=== PATIENT | male | born 1935 | race Caucasian/White ===

== ENCOUNTER → 2016-05-23 | Outpatient (CLI) | payer OTHER ==
[2016-05-23 12:21] LABS: PROTHROMBIN TIME 22.1 SECONDS (9.0-12.4)
== END | disposition home or self-care (01) ==
LOC: LAB 11:16
PROVIDERS: Internal Medicine
DX: I48.91 Unspecified atrial fibrillation (principal)

== ENCOUNTER → 2016-08-22 | Outpatient (CLI) | payer OTHER ==
[2016-08-22 08:56] LABS: INTERNATIONAL NORM RATIO 3.3 (2.0-3.5); PROTHROMBIN TIME 37.9 SECONDS (9.0-12.4)
== END | disposition home or self-care (01) ==
LOC: LAB 08:14
PROVIDERS: Internal Medicine
DX: I48.91 Unspecified atrial fibrillation (principal)

== ENCOUNTER → 2016-09-22 | Outpatient (CLI) | payer OTHER ==
[2016-09-22 08:37] LABS: BASO # 0.1 10*3/uL (0.0-0.1); BASO % 1.1 % (0.0-1.0); EOS # 0.1 10*3/uL (0.0-0.4); EOS % 1.5 % (1.0-4.0); HEMOGLOBIN 11.3 g/dl (14.0-18.0); LYMPH # 1.8 10*3/uL (1.3-4.4); LYMPH % 23.2 % (27.0-41.0); MEAN CELL VOLUME 98.9 fl (80.0-94.0); MEAN CORPUSCULAR HGB 31.9 pg (27.0-31.0); MEAN CORPUSCULAR HGB CONC 32.3 g/dl (33.0-37.0); MEAN PLATELET VOLUME 10.9 fl (9.6-12.3); MONO # 0.8 10*3/uL (0.1-1.0); MONO % 10.6 % (3.0-9.0); NEUT # 4.8 10*3/uL (2.3-7.9); NEUT % 63.1 % (47.0-73.0); PLATELET COUNT AUTOMATED 416 10*3/uL (130-400); RED BLOOD COUNT 3.54 10*6/uL (4.50-5.90); RED CELL DISTRI WIDTH 13.9 % (0-14.5); WHITE BLOOD COUNT 7.5 10*3/uL (4.8-10.8)
[2016-09-22 09:00] LABS: INTERNATIONAL NORM RATIO 2.3 (2.0-3.5); PROTHROMBIN TIME 25.2 SECONDS (9.0-12.4)
[2016-09-22 09:06] LABS: ALBUMIN 3.5 gm/dl (3.1-4.5); BILIRUBIN, TOTAL 0.4 mg/dl (0.2-1.0); POTASSIUM 4.9 mmol/L (3.5-5.1)
[2016-09-22 09:08] LABS: HEMOGLOBIN A1c 6.9 % (4.8-5.6); TOTAL PROTEIN 7.9 gm/dL (6.4-8.2)
== END | disposition home or self-care (01) ==
LOC: LAB 07:22
PROVIDERS: Internal Medicine
DX: E78.5 Hyperlipidemia, unspecified (principal); E11.9 Type 2 diabetes mellitus without complications; I48.91 Unspecified atrial fibrillation; D68.9 Coagulation defect, unspecified; R53.83 Other fatigue

== ENCOUNTER → 2016-12-26 | Outpatient (CLI) | payer OTHER ==
[2016-12-26 09:37] LABS: ALBUMIN 3.8 gm/dl (3.1-4.5); ALKALINE PHOSPHATASE 102 U/L (45-117); BUN 22 mg/dl (7-24); CHLORIDE 102 mmol/L (98-107); CHOLESTEROL 150 mg/dL (<200); CREATININE 1.35 mg/dL (0.70-1.30); HDL CHOLESTEROL 39 mg/dl (40-60); LDL CHOLESTEROL 79 mg/dL (9-159); POTASSIUM 4.5 mmol/L (3.5-5.1); SGOT/AST 17 IU/L (3-35); SGPT/ALT 18 U/L (12-78); SODIUM 139 mmol/L (136-145); TOTAL PROTEIN 8.2 gm/dL (6.4-8.2); TRIGLYCERIDES 159 mg/dl (<150); VLDL CHOLESTEROL 32 mg/dL (6-40)
== END | disposition home or self-care (01) ==
LOC: LAB 08:44
PROVIDERS: Internal Medicine
DX: E11.9 Type 2 diabetes mellitus without complications (principal)

== ENCOUNTER → 2017-01-03 | Outpatient (CLI) | payer OTHER ==
[2017-01-03 15:04] LABS: BASO # 0.1 10*3/uL (0.0-0.1); BASO % 0.7 % (0.0-1.0); EOS # 0.1 10*3/uL (0.0-0.4); EOS % 1.3 % (1.0-4.0); HEMATOCRIT 37.7 % (42.0-52.0); HEMOGLOBIN 12.1 g/dl (14.0-18.0); LYMPH # 2.3 10*3/uL (1.3-4.4); LYMPH % 26.9 % (27.0-41.0); MEAN CELL VOLUME 95.7 fl (80.0-94.0); MEAN CORPUSCULAR HGB 30.7 pg (27.0-31.0); MEAN CORPUSCULAR HGB CONC 32.1 g/dl (33.0-37.0); MEAN PLATELET VOLUME 11.6 fl (9.6-12.3); MONO # 0.9 10*3/uL (0.1-1.0); MONO % 10.9 % (3.0-9.0); NEUT # 5.2 10*3/uL (2.3-7.9); PLATELET COUNT AUTOMATED 201 10*3/uL (130-400); RED BLOOD COUNT 3.94 10*6/uL (4.50-5.90); RED CELL DISTRI WIDTH 14.5 % (0-14.5); RETICULOCYTE % 1.71 % (0.50-2.50); WHITE BLOOD COUNT 8.6 10*3/uL (4.8-10.8)
[2017-01-03 15:14] LABS: URINE CREATININE RANDOM 61.4 mg/dL
[2017-01-03 15:35] LABS: ALBUMIN 3.9 gm/dl (3.1-4.5); CREATININE 1.39 mg/dL (0.70-1.30); MAGNESIUM 2.4 mg/dL (1.5-2.1); PHOSPHOROUS 3.4 mg/dL (2.5-4.9); POTASSIUM 4.4 mmol/L (3.5-5.1)
[2017-01-03 16:10] LABS: FERRITIN 34.5 ng/mL (22.0-322.0); PTH INTACT 91.2 pg/mL (14.0-72.0); VITAMIN D, 25-HYDROXY 22.4 ng/mL (30-100)
== END | disposition home or self-care (01) ==
LOC: LAB 14:06
PROVIDERS: Internal Medicine Nephrology
DX: I13.10 Hypertensive heart and chronic kidney disease without heart failure, with stage 1 through stage 4 chronic kidney disease, or unspecified chronic kidney disease (principal); N18.4 Chronic kidney disease, stage 4 (severe); E87.6 Hypokalemia; E78.5 Hyperlipidemia, unspecified; Z95.0 Presence of cardiac pacemaker

== ENCOUNTER → 2017-01-05 | Outpatient (CLI) | payer OTHER | END | disposition home or self-care (01) | LOC: RAD 11:24 | DX: M19.012 Primary osteoarthritis, left shoulder (principal); M85.812 Other specified disorders of bone density and structure, left shoulder ==

== ENCOUNTER → 2017-02-28 | Outpatient (CLI) | payer OTHER ==
[2017-02-28 08:59] LABS: BILIRUBIN NEGATIVE (NEGATIVE); BLOOD NEGATIVE (NEGATIVE); CLARITY CLEAR (CLEAR); COLOR YELLOW (YELLOW); GLUCOSE NEGATIVE (NEGATIVE); KETONE NEGATIVE (NEGATIVE); LEUKO ESTERASE NEGATIVE (NEGATIVE); NITRITE NEGATIVE (NEGATIVE); SPECIFIC GRAVITY <= 1.005 (1.005-1.030); UROBILINOGEN 0.2 E.U./dl (0.2-1.0)
[2017-02-28 09:21] LABS: CREATININE 1.41 mg/dL (0.70-1.30); POTASSIUM 4.4 mmol/L (3.5-5.1); TOTAL PROTEIN 8.1 gm/dL (6.4-8.2)
[2017-02-28 09:57] LABS: INTERNATIONAL NORM RATIO 2.6 (2.0-3.5)
[2017-02-28 11:02] LABS: RBC 0-2 rbc/hpf (0-2)
== END | disposition home or self-care (01) ==
LOC: LAB 07:50
PROVIDERS: Internal Medicine
DX: D68.9 Coagulation defect, unspecified (principal); E11.65 Type 2 diabetes mellitus with hyperglycemia; Z79.899 Other long term (current) drug therapy

== ENCOUNTER → 2017-07-27 | Outpatient (CLI) | payer OTHER ==
[2017-07-27 08:53] LABS: BASO # 0.1 10*3/uL (0.0-0.1); BASO % 0.7 % (0.0-1.0); EOS # 0.2 10*3/uL (0.0-0.4); HEMOGLOBIN 12.6 g/dl (14.0-18.0); LYMPH # 1.4 10*3/uL (1.3-4.4); MEAN CELL VOLUME 97.9 fl (80.0-94.0); MEAN CORPUSCULAR HGB 33.3 pg (27.0-31.0); MEAN CORPUSCULAR HGB CONC 34.1 g/dl (33.0-37.0); MEAN PLATELET VOLUME 11.2 fl (9.6-12.3); MONO % 13.2 % (3.0-9.0); NEUT % 65.8 % (47.0-73.0); PLATELET COUNT AUTOMATED 166 10*3/uL (130-400); RED BLOOD COUNT 3.78 10*6/uL (4.50-5.90); RED CELL DISTRI WIDTH 14.1 % (0-14.5); RETICULOCYTE % 1.61 % (0.50-2.50); WHITE BLOOD COUNT 7.6 10*3/uL (4.8-10.8)
[2017-07-27 09:01] LABS: URINE CREATININE RANDOM 89.7 mg/dL
[2017-07-27 09:13] LABS: ALBUMIN 3.7 gm/dl (3.1-4.5); CREATININE 1.53 mg/dL (0.70-1.30); POTASSIUM 4.1 mmol/L (3.5-5.1); TOTAL PROTEIN 7.4 gm/dL (6.4-8.2)
[2017-07-27 09:36] LABS: FERRITIN 96.9 ng/mL (22.0-322.0); VITAMIN D, 25-HYDROXY 62.1 ng/mL (30-100)
[2017-07-27 09:37] LABS: PTH INTACT 56.2 pg/mL (14.0-72.0)
== END | disposition home or self-care (01) ==
LOC: LAB 08:06
PROVIDERS: Internal Medicine Nephrology
DX: I13.10 Hypertensive heart and chronic kidney disease without heart failure, with stage 1 through stage 4 chronic kidney disease, or unspecified chronic kidney disease (principal); N18.4 Chronic kidney disease, stage 4 (severe); I50.9 Heart failure, unspecified; E55.9 Vitamin D deficiency, unspecified; E87.6 Hypokalemia; E78.5 Hyperlipidemia, unspecified; D63.1 Anemia in chronic kidney disease; Z95.0 Presence of cardiac pacemaker

== ENCOUNTER → 2017-11-23 | Outpatient (CLI) | payer OTHER ==
[2017-11-23 08:42] LABS: BASO # 0.1 10*3/uL (0.0-0.1); BASO % 0.9 % (0.0-1.0); EOS # 0.1 10*3/uL (0.0-0.4); EOS % 1.9 % (1.0-4.0); HEMATOCRIT 37.1 % (42.0-52.0); HEMOGLOBIN 12.2 g/dl (14.0-18.0); LYMPH # 1.4 10*3/uL (1.3-4.4); LYMPH % 21.1 % (27.0-41.0); MEAN CELL VOLUME 101.1 fl (80.0-94.0); MEAN CORPUSCULAR HGB 33.2 pg (27.0-31.0); MEAN CORPUSCULAR HGB CONC 32.9 g/dl (33.0-37.0); MEAN PLATELET VOLUME 12.2 fl (9.6-12.3); MONO # 0.9 10*3/uL (0.1-1.0); MONO % 12.7 % (3.0-9.0); NEUT # 4.2 10*3/uL (2.3-7.9); NEUT % 63.1 % (47.0-73.0); PLATELET COUNT AUTOMATED 146 10*3/uL (130-400); RED BLOOD COUNT 3.67 10*6/uL (4.50-5.90); RED CELL DISTRI WIDTH 13.6 % (0-14.5); WHITE BLOOD COUNT 6.7 10*3/uL (4.8-10.8)
[2017-11-23 09:41] LABS: ALBUMIN 4.1 gm/dl (3.1-4.5); CREATININE 1.55 mg/dL (0.70-1.30); TOTAL PROTEIN 7.4 gm/dL (6.4-8.2)
== END | disposition home or self-care (01) ==
LOC: LAB 08:02
PROVIDERS: Family Medicine
DX: E11.65 Type 2 diabetes mellitus with hyperglycemia (principal); E78.5 Hyperlipidemia, unspecified; I48.2 Chronic atrial fibrillation; E87.6 Hypokalemia

== ENCOUNTER 2018-05-28 12:28 | Inpatient (IN) | payer OTHER ==
[~2018-05-28] VITALS: Ht 167.6 cm; Wt 56.9 kg
[2018-05-28] VITALS (7 sets, daily range): BP systolic 122–134; BP diastolic 61–96
--- NOTE | ~2018-05-28 | EKG ---
[place], [place] ELECTROCARDIOGRAM REPORT NAME: SALLY VEGA UNIT #: [id number] ROOM: 420 DOCTOR: JOE DRAFT REPORT BIRTHDATE: [birth year] [facility] Test Date: 2018-05-28 Test Time: 12:45:44 Pat Name: SALLY VEGA Department: Room: 420 Gender: M Safety Net Maker: : [id number] Requested By: FERNANDO PEOPLES Order Number: [id number] Reading MD: Tomas Freeman MD Measurements Intervals [place] Rate: 78 P: 89 OR: 157 QRS: 246 QRSD: 156 T: 78 QT: 453 QTc: 517 Interpretive Statements Ventricular-paced complexes Frequent PVCs or intrinsic beats No further analysis attempted due to paced rhythm Electronically Signed On 05-28-2018 21:43:24 PST by Tomas Freeman MD CM:EKGRPT:ELECTROCARDIOGRAM REPORT [id number] FERNANDO DIAZ DRAFT REPORT FERNANDO PEOPLES MD
[2018-05-28 13:07] LABS: BASO % 0.3 % (0.0-1.0); EOS # 0.1 10*3/uL (0.0-0.4); EOS % 0.6 % (1.0-4.0); HEMATOCRIT 39.9 % (42.0-52.0); HEMOGLOBIN 12.6 g/dl (14.0-18.0); LYMPH # 1.3 10*3/uL (1.3-4.4); LYMPH % 14.8 % (27.0-41.0); MEAN CELL VOLUME 105.6 fl (80.0-94.0); MEAN CORPUSCULAR HGB 33.3 pg (27.0-31.0); MEAN CORPUSCULAR HGB CONC 31.6 g/dl (33.0-37.0); MEAN PLATELET VOLUME 11.2 fl (9.6-12.3); MONO # 1.1 10*3/uL (0.1-1.0); MONO % 12.6 % (3.0-9.0); NEUT # 6.2 10*3/uL (2.3-7.9); NEUT % 71.4 % (47.0-73.0); PLATELET COUNT AUTOMATED 136 10*3/uL (130-400); RED BLOOD COUNT 3.78 10*6/uL (4.50-5.90); RED CELL DISTRI WIDTH 14.2 % (0-14.5); WHITE BLOOD COUNT 8.6 10*3/uL (4.8-10.8)
[2018-05-28 13:19] LABS: ACT PARTIAL THROMBO TIME 37.1 SECONDS (20.8-31.5); INTERNATIONAL NORM RATIO 2.2 (2.0-3.5)
--- NOTE | 2018-05-28 13:22 | NUR ---
PT POSITIONED FOR COMFORT WITH SAFETY PRECAUTIONS INTACT AND CALL LIGHT WITHIN REACH,FAMILY FRIEND @ BEDSIDE.
[2018-05-28 13:24] LABS: ALBUMIN 3.9 gm/dl (3.1-4.5); BUN 27 mg/dl (7-24); CHLORIDE 102 mmol/L (98-107); CREATININE 1.45 mg/dL (0.70-1.30); POTASSIUM 5.1 mmol/L (3.5-5.1); SGOT/AST 15 IU/L (3-35); SGPT/ALT 21 U/L (12-78); SODIUM 137 mmol/L (136-145)
[2018-05-28 13:28] LABS: ALKALINE PHOSPHATASE 83 U/L (45-117); TOTAL PROTEIN 7.9 gm/dL (6.4-8.2)
[2018-05-28 13:29] LABS: TROPONIN I < 0.015 ng/ml (<0.045)
[2018-05-28] MEDS ORDERED: POTASSIUM CHLO10 ME4 PO (14:10)
[2018-05-28] MEDS ORDERED: TORSEMIDE20 MG PO (14:11)
[2018-05-28] MEDS ORDERED: IMDUR SA60 M1 PO (14:11)
[2018-05-28] MEDS ORDERED: METFORMIN HYDR500 MG PO (14:12)
[2018-05-28] MEDS ORDERED: Coumadin2 MG PO (14:12)
[2018-05-28] MEDS ORDERED: DIGITEK125 MCG PO (14:13)
[2018-05-28] MEDS ORDERED: FEROSUL325 MG PO (14:13)
[2018-05-28] MEDS ORDERED: VITAMIN D31000 UNI1 PO (14:54)
[2018-05-28] MEDS ORDERED: CARVEDILOL25 MG PO (14:55)
[2018-05-28] MEDS ORDERED: SIMVASTATIN10 MG PO (14:56)
[2018-05-28] MEDS ORDERED: JANTOVEN4 M1 PO (14:58)
--- NOTE | 2018-05-28 15:56 | NUR ---
PT WATCHING T.V. AN AWAITING ADMISSION,FAMILY AWARE.
[2018-05-28 16:18] LABS: BILIRUBIN NEGATIVE (NEGATIVE); BLOOD TRACE-INTACT (NEGATIVE); CLARITY CLOUDY (CLEAR); COLOR YELLOW (YELLOW); GLUCOSE NEGATIVE (NEGATIVE); KETONE NEGATIVE (NEGATIVE); LEUKO ESTERASE 3+ (NEGATIVE); NITRITE NEGATIVE (NEGATIVE); PH 5.5 (5.0-9.0); SPECIFIC GRAVITY 1.015 (1.005-1.030); UROBILINOGEN 0.2 E.U./dl (0.2-1.0)
[2018-05-28 16:27] LABS: BACTERIA 4+; EPITHELIAL CELLS 0-2; MUCOUS TRACE; RBC 0-2 rbc/hpf (0-2); WBC TNTC wbc/hpf (0-5)
[2018-05-28] MEDS ORDERED: OCUVITE SOFTGE1 EACH PO (17:50)
[2018-05-28] MEDS ORDERED: IRON256 MG PO (17:53)
[2018-05-28] MEDS ORDERED: IMDUR SA30 MG PO (17:56)
[2018-05-29] VITALS: BP 100/60
--- NOTE | 2018-05-29 01:06 | NUR ---
24 HR chart check completed.
[2018-05-29 06:22] LABS: BASO # 0.1 10*3/uL (0.0-0.1); BASO % 0.6 % (0.0-1.0); EOS # 0.1 10*3/uL (0.0-0.4); EOS % 1.7 % (1.0-4.0); HEMATOCRIT 36.1 % (42.0-52.0); LYMPH # 1.3 10*3/uL (1.3-4.4); LYMPH % 16.9 % (27.0-41.0); MEAN CELL VOLUME 102.8 fl (80.0-94.0); MEAN CORPUSCULAR HGB 34.2 pg (27.0-31.0); MEAN CORPUSCULAR HGB CONC 33.2 g/dl (33.0-37.0); MEAN PLATELET VOLUME 11.6 fl (9.6-12.3); MONO # 0.9 10*3/uL (0.1-1.0); MONO % 12.1 % (3.0-9.0); NEUT # 5.3 10*3/uL (2.3-7.9); NEUT % 68.3 % (47.0-73.0); PLATELET COUNT AUTOMATED 129 10*3/uL (130-400); RED BLOOD COUNT 3.51 10*6/uL (4.50-5.90); RED CELL DISTRI WIDTH 14.3 % (0-14.5); WHITE BLOOD COUNT 7.7 10*3/uL (4.8-10.8)
[2018-05-29 06:53] LABS: ALBUMIN 3.2 gm/dl (3.1-4.5); ALKALINE PHOSPHATASE 73 U/L (45-117); BUN 27 mg/dl (7-24); CHLORIDE 104 mmol/L (98-107); CHOLESTEROL 117 mg/dL (<200); CREATININE 1.05 mg/dL (0.70-1.30); FREE T4 1.29 ng/dl (0.76-1.46); HDL CHOLESTEROL 43 mg/dl (40-60); LDL CHOLESTEROL 60 mg/dL (9-159); PHOSPHOROUS 3.1 mg/dL (2.5-4.9); POTASSIUM 4.2 mmol/L (3.5-5.1); SGOT/AST 14 IU/L (3-35); SGPT/ALT 18 U/L (12-78); SODIUM 138 mmol/L (136-145); TOTAL PROTEIN 6.9 gm/dL (6.4-8.2); TRIGLYCERIDES 72 mg/dl (<150); VLDL CHOLESTEROL 14 mg/dL (6-40)
[2018-05-29 07:34] LABS: VITAMIN D, 25-HYDROXY 49.6 ng/mL (30-100)
--- NOTE | 2018-05-29 09:00 | NUR ---
Tile Setter Supervisor in to talk to patient. Patient states lives at home with . There are few steps in the home. Physician: eliud song Pharmacy: Home health services: none Patient's level of ADLs: MINIMAL ASSIST Patient has working utilities: all working DME: none Follow-up physician's appointment after d/c: will be made by hospitalist nurse director upon discharge Does patient want to access PORTAL?: no Discharge plan discussed with patient, patient lives at home with , he states he usually gets around fine, no cane or walker, patient states he doens't drive but has a friend that takes them to get groceries and doctor appointments. patient states he will be going home when able. discussed with him [facility] and he declines any services at this time, case management will follow for any home needs. ARACELI DELAROSA
--- NOTE | 2018-05-29 11:17 | NUR ---
SALLY VEGA [id number] Please refer to the physician's history and physical for past medical history, comorbid conditions, and allergies. Diagnosis: LEFT RIB FRACTURE UNCONTROLLED PAIN Ronnie Score: 18,AT RISK WOUND DESCRIPTIONS: Location of the wound: LEFT FOREARM Type of wound: SKIN TEAR Thickness: Partial Size: 1.9cm X 1.4cm X 0.1cm Tunneling: NONE Undermining: NONE Sinus Tract: NONE Presence of Exudate: Sanguineous Amount: LIGHT Color: Red Odor: NONE Periwound Skin Appearance: Erythema Wound edges: APPROXIMATED Pain (associated with wound): DENIED AT TIME OF ASSESSMENT How does patient state this happened? PATIENT IS UNSURE HOW THIS HAPPENED. Surface the patient is resting on: Isoflex SKIN PREVENTION RECOMMENDATION: 1. Pressure redistribution support surface as appropriate 2. Elevate heels 3. Remove boots/TEDS every shift and reapply 4. Head of bed 30 degrees as tolerated 5. Assess nutrition and hydration 6. Manage moisture 7. Avoid the use of containment devices while in bed 8. Use absorptive products on surfaces limit layers of linens on bed 9. Turn and reposition every 1-2 hours in bed and every 1 hour in chair as tolerated 10. Weight shifts every 15 minutes while up in chair 11. Offloading with pillows or device to keep heels elevated off bed 12. Monitor skin at least every shift 13. Inspect under medical devices twice a day WOUND TREATMENT RECOMMENDATIONS: CONTINUE CURRENT ORDERS.
--- NOTE | 2018-05-29 11:40 | NUR ---
Discharge instructions reviewed with patient/family. Patient receptive and verbalizes understanding. Follow-up care arranged. Written instructions given to patient/family. HEPLOCK DISCONTINUED, PT'S ENGINEERING DOCUMENT CONTROL CLERK REMOVED. PATIENT TAKEN OFF FLOOR BY WHEELCHAIR. CATHY BRAGA
== END 2018-05-29 11:40 | disposition home or self-care (01) | DRG 205 ==
LOC: ED 12:28 → 4E 15:07 → EDHOLD 15:07 → 4E 16:45
PROVIDERS: Emergency Medicine; Internal Medicine; ADMIT Internal Medicine
DX: S22.32XA Fracture of one rib, left side, initial encounter for closed fracture (principal); N17.0 Acute kidney failure with tubular necrosis; I50.32 Chronic diastolic (congestive) heart failure; D68.59 Other primary thrombophilia; I13.0 Hypertensive heart and chronic kidney disease with heart failure and stage 1 through stage 4 chronic kidney disease, or unspecified chronic kidney disease; E83.41 Hypermagnesemia; R82.71 Bacteriuria; I48.91 Unspecified atrial fibrillation; I25.10 Atherosclerotic heart disease of native coronary artery without angina pectoris; N18.9 Chronic kidney disease, unspecified; E11.22 Type 2 diabetes mellitus with diabetic chronic kidney disease; E11.65 Type 2 diabetes mellitus with hyperglycemia; D53.9 Nutritional anemia, unspecified; W01.0XXA Fall on same level from slipping, tripping and stumbling without subsequent striking against object, initial encounter; Y93.89 Activity, other specified; Y92.098 Other place in other non-institutional residence as the place of occurrence of the external cause; Y99.8 Other external cause status; Z95.810 Presence of automatic (implantable) cardiac defibrillator; Z95.1 Presence of aortocoronary bypass graft; Z83.3 Family history of diabetes mellitus; Z82.49 Family history of ischemic heart disease and other diseases of the circulatory system; Z79.899 Other long term (current) drug therapy; Z79.01 Long term (current) use of anticoagulants

== ENCOUNTER → 2018-10-18 | Outpatient (CLI) | payer OTHER ==
[~2018-10-18] MED LIST: CARVEDILOL25 MG PO; Coumadin2 MG PO; DIGITEK125 MCG PO; FEROSUL325 MG PO; IMDUR SA30 MG PO; IMDUR SA60 M1 PO; IRON256 MG PO; JANTOVEN4 M1 PO; METFORMIN HYDR500 MG PO; OCUVITE SOFTGE1 EACH PO; POTASSIUM CHLO10 ME4 PO; SIMVASTATIN10 MG PO; TORSEMIDE20 MG PO; VITAMIN D31000 UNI1 PO
== END | disposition home or self-care (01) ==
LOC: NM 09:57
DX: M79.622 Pain in left upper arm (principal); R63.4 Abnormal weight loss; R93.6 Abnormal findings on diagnostic imaging of limbs

== ENCOUNTER → 2018-10-26 | Outpatient (CLI) | payer OTHER ==
[2018-10-26 08:06] LABS: BASO % 0.6 % (0.0-1.0); EOS # 0.1 10*3/uL (0.0-0.4); EOS % 2.2 % (1.0-4.0); HEMATOCRIT 37.5 % (42.0-52.0); HEMOGLOBIN 12.2 g/dl (14.0-18.0); LYMPH # 1.3 10*3/uL (1.3-4.4); LYMPH % 20.1 % (27.0-41.0); MEAN CELL VOLUME 104.5 fl (80.0-94.0); MEAN CORPUSCULAR HGB CONC 32.5 g/dl (33.0-37.0); MEAN PLATELET VOLUME 11.8 fl (9.6-12.3); MONO # 0.7 10*3/uL (0.1-1.0); MONO % 10.6 % (3.0-9.0); NEUT # 4.3 10*3/uL (2.3-7.9); NEUT % 66.2 % (47.0-73.0); PLATELET COUNT AUTOMATED 155 10*3/uL (130-400); RED BLOOD COUNT 3.59 10*6/uL (4.50-5.90); RED CELL DISTRI WIDTH 14.6 % (0-14.5); WHITE BLOOD COUNT 6.5 10*3/uL (4.8-10.8)
[2018-10-27 05:04] LABS: TOTAL PROTEIN, SERUM 6.9 g/dL (6.0-8.5)
[2018-10-29 14:05] LABS: A/G RATIO 1.2 (0.7-1.7); ALBUMIN 3.8 g/dL (2.9-4.4); ALPHA-1-GLOBULIN 0.3 g/dL (0.0-0.4); ALPHA-2-GLOBULIN 0.9 g/dL (0.4-1.0); BETA GLOBULIN 1.1 g/dL (0.7-1.3); GAMMA GLOBULIN 0.9 g/dL (0.4-1.8); GLOBULIN, TOTAL 3.1 g/dL (2.2-3.9); M-SPIKE Not Observed g/dL (Not Observed)
== END | disposition home or self-care (01) ==
LOC: LAB 07:29
PROVIDERS: Orthopaedic Surgery
DX: M85.88 Other specified disorders of bone density and structure, other site (principal); M41.85 Other forms of scoliosis, thoracolumbar region; I51.7 Cardiomegaly

== ENCOUNTER → 2019-01-16 | Outpatient (CLI) | payer OTHER ==
[2019-01-16 09:17] LABS: BASO # 0.1 10*3/uL (0.0-0.1); EOS # 0.2 10*3/uL (0.0-0.4); EOS % 2.7 % (1.0-4.0); HEMATOCRIT 39.5 % (42.0-52.0); HEMOGLOBIN 12.9 g/dl (14.0-18.0); LYMPH # 1.3 10*3/uL (1.3-4.4); LYMPH % 21.6 % (27.0-41.0); MEAN CELL VOLUME 104.2 fl (80.0-94.0); MEAN CORPUSCULAR HGB CONC 32.7 g/dl (33.0-37.0); MEAN PLATELET VOLUME 11.2 fl (9.6-12.3); MONO # 0.8 10*3/uL (0.1-1.0); MONO % 12.7 % (3.0-9.0); NEUT # 3.8 10*3/uL (2.3-7.9); NEUT % 61.7 % (47.0-73.0); PLATELET COUNT AUTOMATED 155 10*3/uL (130-400); RED BLOOD COUNT 3.79 10*6/uL (4.50-5.90); WHITE BLOOD COUNT 6.2 10*3/uL (4.8-10.8)
[2019-01-16 09:43] LABS: ALBUMIN 3.9 gm/dl (3.1-4.5); ALKALINE PHOSPHATASE 95 U/L (45-117); BUN 23 mg/dl (7-24); CHLORIDE 103 mmol/L (98-107); CHOLESTEROL 152 mg/dL (<200); CREATININE 1.24 mg/dL (0.70-1.30); HDL CHOLESTEROL 53 mg/dl (40-60); LDL CHOLESTEROL 81 mg/dL (9-159); POTASSIUM 4.5 mmol/L (3.5-5.1); SGOT/AST 15 IU/L (3-35); SGPT/ALT 19 U/L (12-78); SODIUM 139 mmol/L (136-145); TOTAL PROTEIN 7.5 gm/dL (6.4-8.2); TRIGLYCERIDES 91 mg/dl (<150); VLDL CHOLESTEROL 18 mg/dL (6-40)
== END | disposition home or self-care (01) ==
LOC: LAB 08:59
PROVIDERS: Family Medicine
DX: E11.65 Type 2 diabetes mellitus with hyperglycemia (principal); E78.2 Mixed hyperlipidemia; E87.6 Hypokalemia

== ENCOUNTER → 2019-05-16 | Outpatient (CLI) | payer OTHER ==
[2019-05-16 13:53] LABS: BASO % 0.4 % (0.0-1.0); EOS # 0.1 10*3/uL (0.0-0.4); EOS % 1.1 % (1.0-4.0); HEMATOCRIT 42.2 % (42.0-52.0); HEMOGLOBIN 13.9 g/dl (14.0-18.0); LYMPH # 1.6 10*3/uL (1.3-4.4); LYMPH % 21.9 % (27.0-41.0); MEAN CELL VOLUME 101.2 fl (80.0-94.0); MEAN CORPUSCULAR HGB 33.3 pg (27.0-31.0); MEAN CORPUSCULAR HGB CONC 32.9 g/dl (33.0-37.0); MEAN PLATELET VOLUME 11.9 fl (9.6-12.3); MONO # 0.7 10*3/uL (0.1-1.0); MONO % 9.6 % (3.0-9.0); NEUT # 4.7 10*3/uL (2.3-7.9); NEUT % 66.7 % (47.0-73.0); PLATELET COUNT AUTOMATED 159 10*3/uL (130-400); RED BLOOD COUNT 4.17 10*6/uL (4.50-5.90); RED CELL DISTRI WIDTH 13.1 % (0-14.5); WHITE BLOOD COUNT 7.1 10*3/uL (4.8-10.8)
[2019-05-16 14:23] LABS: CREATININE 1.59 mg/dL (0.70-1.30); POTASSIUM 3.8 mmol/L (3.5-5.1); TOTAL PROTEIN 7.7 gm/dL (6.4-8.2)
[2019-05-16 16:59] LABS: BILIRUBIN NEGATIVE (NEGATIVE); BLOOD NEGATIVE (NEGATIVE); CLARITY CLEAR (CLEAR); COLOR YELLOW (YELLOW); GLUCOSE NEGATIVE (NEGATIVE); KETONE NEGATIVE (NEGATIVE); LEUKO ESTERASE NEGATIVE (NEGATIVE); NITRITE NEGATIVE (NEGATIVE); PH 5.5 (5.0-9.0); UROBILINOGEN 0.2 E.U./dl (0.2-1.0)
[2019-05-18 06:03] LABS: TESTOSTERONE FREE, (DIRECT) 3.1 pg/mL (6.6-18.1)
== END | disposition home or self-care (01) ==
LOC: CT 05-15 13:00 → LAB 12:48 → CT 13:00
PROVIDERS: Nurse Practitioner Family
DX: Z12.5 Encounter for screening for malignant neoplasm of prostate (principal); K80.80 Other cholelithiasis without obstruction; D40.0 Neoplasm of uncertain behavior of prostate; I10 Essential (primary) hypertension; N39.0 Urinary tract infection, site not specified; I25.10 Atherosclerotic heart disease of native coronary artery without angina pectoris

== ENCOUNTER → 2019-07-11 | Outpatient (CLI) | payer OTHER ==
[2019-07-11 15:56] LABS: BASO # 0.1 10*3/uL (0.0-0.1); EOS # 0.1 10*3/uL (0.0-0.4); EOS % 1.6 % (1.0-4.0); HEMATOCRIT 38.4 % (42.0-52.0); HEMOGLOBIN 12.6 g/dl (14.0-18.0); LYMPH # 1.9 10*3/uL (1.3-4.4); LYMPH % 25.7 % (27.0-41.0); MEAN CELL VOLUME 103.2 fl (80.0-94.0); MEAN CORPUSCULAR HGB 33.9 pg (27.0-31.0); MEAN CORPUSCULAR HGB CONC 32.8 g/dl (33.0-37.0); MEAN PLATELET VOLUME 10.9 fl (9.6-12.3); MONO # 0.7 10*3/uL (0.1-1.0); NEUT # 4.5 10*3/uL (2.3-7.9); NEUT % 61.4 % (47.0-73.0); PLATELET COUNT AUTOMATED 197 10*3/uL (130-400); RED BLOOD COUNT 3.72 10*6/uL (4.50-5.90); RED CELL DISTRI WIDTH 13.4 % (0-14.5); WHITE BLOOD COUNT 7.3 10*3/uL (4.8-10.8)
[2019-07-11 16:06] LABS: INTERNATIONAL NORM RATIO 2.9 (2.0-3.5)
[2019-07-11 16:31] LABS: ALBUMIN 3.8 gm/dl (3.1-4.5); CREATININE 1.44 mg/dL (0.70-1.30); POTASSIUM 4.1 mmol/L (3.5-5.1); TOTAL PROTEIN 7.8 gm/dL (6.4-8.2)
[2019-07-11 16:43] LABS: DIGOXIN 1.17 ng/ml (0.8-2.0)
== END | disposition home or self-care (01) ==
LOC: RESCLI 01:03
PROVIDERS: Internal Medicine
DX: I13.0 Hypertensive heart and chronic kidney disease with heart failure and stage 1 through stage 4 chronic kidney disease, or unspecified chronic kidney disease (principal); I50.9 Heart failure, unspecified; N18.9 Chronic kidney disease, unspecified; E11.22 Type 2 diabetes mellitus with diabetic chronic kidney disease; E11.9 Type 2 diabetes mellitus without complications; E61.1 Iron deficiency; I25.810 Atherosclerosis of coronary artery bypass graft(s) without angina pectoris; I48.91 Unspecified atrial fibrillation; Z79.84 Long term (current) use of oral hypoglycemic drugs; Z79.899 Other long term (current) drug therapy; Z95.1 Presence of aortocoronary bypass graft; Z98.890 Other specified postprocedural states

== ENCOUNTER → 2019-08-08 | Outpatient (CLI) | payer OTHER ==
[2019-08-08 09:10] LABS: INTERNATIONAL NORM RATIO 2.1 (2.0-3.5)
== END | disposition home or self-care (01) ==
LOC: LAB 07:50
PROVIDERS: Internal Medicine
DX: I48.91 Unspecified atrial fibrillation (principal); I50.9 Heart failure, unspecified

== ENCOUNTER 2019-09-02 11:16 | Emergency (ER) | payer OTHER ==
[~2019-09-02] VITALS: Ht 167.6 cm; Wt 56.7 kg
[2019-09-02 12:05] LABS: BASO % 0.3 % (0.0-1.0); EOS % 0.4 % (1.0-4.0); HEMATOCRIT 37.3 % (42.0-52.0); LYMPH # 1.2 10*3/uL (1.3-4.4); MEAN CELL VOLUME 102.5 fl (80.0-94.0); MEAN CORPUSCULAR HGB 33.2 pg (27.0-31.0); MEAN CORPUSCULAR HGB CONC 32.4 g/dl (33.0-37.0); MEAN PLATELET VOLUME 11.6 fl (9.6-12.3); MONO # 1.3 10*3/uL (0.1-1.0); MONO % 12.7 % (3.0-9.0); NEUT # 7.9 10*3/uL (2.3-7.9); NEUT % 75.2 % (47.0-73.0); PLATELET COUNT AUTOMATED 188 10*3/uL (130-400); RED BLOOD COUNT 3.64 10*6/uL (4.50-5.90); RED CELL DISTRI WIDTH 13.4 % (0-14.5); WHITE BLOOD COUNT 10.5 10*3/uL (4.8-10.8)
[2019-09-02 12:15] LABS: CREATININE 1.54 mg/dL (0.70-1.30); POTASSIUM 4.2 mmol/L (3.5-5.1)
[2019-09-02 12:27] LABS: INTERNATIONAL NORM RATIO 4.9 (2.0-3.5)
[2019-09-02] MEDS ORDERED: NORCO 5-325 TA1 EACH PO (13:44)
== END 2019-09-02 13:44 | disposition home or self-care (01) ==
LOC: ED 11:16
PROVIDERS: Nurse Practitioner Family
DX: S22.42XA Multiple fractures of ribs, left side, initial encounter for closed fracture (principal); S22.089A Unspecified fracture of T11-T12 vertebra, initial encounter for closed fracture; S30.1XXA Contusion of abdominal wall, initial encounter; M25.512 Pain in left shoulder; E78.5 Hyperlipidemia, unspecified; E11.22 Type 2 diabetes mellitus with diabetic chronic kidney disease; I13.0 Hypertensive heart and chronic kidney disease with heart failure and stage 1 through stage 4 chronic kidney disease, or unspecified chronic kidney disease; N18.9 Chronic kidney disease, unspecified; I50.9 Heart failure, unspecified; I48.91 Unspecified atrial fibrillation; Z79.01 Long term (current) use of anticoagulants; Z79.899 Other long term (current) drug therapy; Z95.4 Presence of other heart-valve replacement; W01.198A Fall on same level from slipping, tripping and stumbling with subsequent striking against other object, initial encounter; Y93.89 Activity, other specified; Y92.098 Other place in other non-institutional residence as the place of occurrence of the external cause; Y99.8 Other external cause status

== ENCOUNTER → 2019-09-05 | Outpatient (CLI) | payer OTHER ==
[~2019-09-05] MED LIST changes: +NORCO 5-325 TA1 EACH PO
[2019-09-05 10:53] LABS: INTERNATIONAL NORM RATIO 2.1 (2.0-3.5)
== END | disposition home or self-care (01) ==
LOC: LAB 09:31
PROVIDERS: Internal Medicine
DX: I48.91 Unspecified atrial fibrillation (principal); I50.9 Heart failure, unspecified

== ENCOUNTER → 2019-10-03 | Outpatient (CLI) | payer OTHER ==
[2019-10-03 10:33] LABS: INTERNATIONAL NORM RATIO 4.8 (2.0-3.5)
== END ==
LOC: LAB 09:01
PROVIDERS: Internal Medicine
DX: I50.9 Heart failure, unspecified (principal); I48.91 Unspecified atrial fibrillation

== ENCOUNTER → 2019-10-04 | Outpatient (CLI) | payer OTHER ==
[2019-10-04 10:29] LABS: INTERNATIONAL NORM RATIO 4.7 (2.0-3.5)
== END | disposition home or self-care (01) ==
LOC: LAB 08:14
PROVIDERS: Internal Medicine
DX: I48.91 Unspecified atrial fibrillation (principal)

== ENCOUNTER → 2019-10-07 | Outpatient (CLI) | payer OTHER ==
[2019-10-07 09:27] LABS: INTERNATIONAL NORM RATIO 1.6 (2.0-3.5)
== END | disposition home or self-care (01) ==
LOC: LAB 08:26
PROVIDERS: Internal Medicine
DX: I48.91 Unspecified atrial fibrillation (principal)

== ENCOUNTER → 2019-10-14 | Outpatient (CLI) | payer OTHER ==
[2019-10-14 09:40] LABS: INTERNATIONAL NORM RATIO 2.9 (2.0-3.5)
== END | disposition home or self-care (01) ==
LOC: LAB 08:08
PROVIDERS: Internal Medicine
DX: I48.91 Unspecified atrial fibrillation (principal)

== ENCOUNTER → 2019-10-22 | Outpatient (CLI) | payer OTHER | END | disposition home or self-care (01) | LOC: RESCLI 01:03 | PROVIDERS: Internal Medicine | DX: I48.91 Unspecified atrial fibrillation (principal); I25.810 Atherosclerosis of coronary artery bypass graft(s) without angina pectoris; E61.1 Iron deficiency; I11.0 Hypertensive heart disease with heart failure; I50.9 Heart failure, unspecified; E11.9 Type 2 diabetes mellitus without complications; E55.9 Vitamin D deficiency, unspecified; I25.2 Old myocardial infarction; Z95.1 Presence of aortocoronary bypass graft; Z95.0 Presence of cardiac pacemaker; Z79.899 Other long term (current) drug therapy; Z79.01 Long term (current) use of anticoagulants ==

== ENCOUNTER → 2019-10-31 | Outpatient (CLI) | payer OTHER ==
[2019-10-31 09:54] LABS: INTERNATIONAL NORM RATIO 2.6 (2.0-3.5)
== END | disposition home or self-care (01) ==
LOC: LAB 08:49
PROVIDERS: Internal Medicine
DX: I48.91 Unspecified atrial fibrillation (principal); I50.9 Heart failure, unspecified

== ENCOUNTER → 2019-11-27 | Outpatient (CLI) | payer OTHER ==
[2019-11-27 11:35] LABS: INTERNATIONAL NORM RATIO 8.6 (2.0-3.5)
== END | disposition home or self-care (01) ==
LOC: LAB 10:25
PROVIDERS: Internal Medicine
DX: I50.9 Heart failure, unspecified (principal); I48.91 Unspecified atrial fibrillation

== ENCOUNTER → 2019-11-29 | Outpatient (CLI) | payer OTHER | END | disposition home or self-care (01) | LOC: RESCLI 01:55 | DX: I48.91 Unspecified atrial fibrillation (principal); I13.0 Hypertensive heart and chronic kidney disease with heart failure and stage 1 through stage 4 chronic kidney disease, or unspecified chronic kidney disease; E11.22 Type 2 diabetes mellitus with diabetic chronic kidney disease; N18.9 Chronic kidney disease, unspecified; R79.1 Abnormal coagulation profile; I50.9 Heart failure, unspecified; E55.9 Vitamin D deficiency, unspecified; E78.5 Hyperlipidemia, unspecified; Z95.1 Presence of aortocoronary bypass graft; Z95.0 Presence of cardiac pacemaker; Z79.899 Other long term (current) drug therapy ==

== ENCOUNTER → 2019-11-29 | Outpatient (CLI) | payer OTHER ==
[2019-11-29 10:26] LABS: BASO % 0.4 % (0.0-1.0); EOS # 0.1 10*3/uL (0.0-0.4); EOS % 1.3 % (1.0-4.0); HEMATOCRIT 36.1 % (42.0-52.0); LYMPH # 1.1 10*3/uL (1.3-4.4); LYMPH % 15.8 % (27.0-41.0); MEAN CELL VOLUME 98.6 fl (80.0-94.0); MEAN CORPUSCULAR HGB 31.7 pg (27.0-31.0); MEAN CORPUSCULAR HGB CONC 32.1 g/dl (33.0-37.0); MEAN PLATELET VOLUME 11.9 fl (9.6-12.3); MONO # 0.9 10*3/uL (0.1-1.0); MONO % 13.3 % (3.0-9.0); NEUT # 4.9 10*3/uL (2.3-7.9); NEUT % 69.1 % (47.0-73.0); PLATELET COUNT AUTOMATED 142 10*3/uL (130-400); RED BLOOD COUNT 3.66 10*6/uL (4.50-5.90); RED CELL DISTRI WIDTH 15.1 % (0-14.5); WHITE BLOOD COUNT 7.1 10*3/uL (4.8-10.8)
== END | disposition home or self-care (01) ==
LOC: LAB 09:48
PROVIDERS: Family Medicine; Internal Medicine
DX: I48.91 Unspecified atrial fibrillation (principal)

== ENCOUNTER → 2019-11-30 | Outpatient (CLI) | payer OTHER | END | disposition home or self-care (01) | LOC: LAB 09:29 | DX: K92.1 Melena (principal); R79.1 Abnormal coagulation profile ==

== ENCOUNTER → 2019-12-04 | Outpatient (CLI) | payer OTHER ==
[2019-12-04 09:03] LABS: BASO # 0.1 10*3/uL (0.0-0.1); BASO % 0.8 % (0.0-1.0); EOS # 0.1 10*3/uL (0.0-0.4); HEMATOCRIT 38.4 % (42.0-52.0); LYMPH # 1.1 10*3/uL (1.3-4.4); LYMPH % 18.1 % (27.0-41.0); MEAN CELL VOLUME 101.1 fl (80.0-94.0); MEAN CORPUSCULAR HGB 31.8 pg (27.0-31.0); MEAN CORPUSCULAR HGB CONC 31.5 g/dl (33.0-37.0); MEAN PLATELET VOLUME 11.9 fl (9.6-12.3); MONO # 0.7 10*3/uL (0.1-1.0); MONO % 12.2 % (3.0-9.0); NEUT % 66.7 % (47.0-73.0); PLATELET COUNT AUTOMATED 145 10*3/uL (130-400); RED CELL DISTRI WIDTH 15.6 % (0-14.5)
[2019-12-04 09:21] LABS: INTERNATIONAL NORM RATIO 2.3 (2.0-3.5)
== END | disposition home or self-care (01) ==
LOC: RESCLI 01:07 → LAB 01:07 → RESCLI 06:48
PROVIDERS: Hospitalist
DX: E11.22 Type 2 diabetes mellitus with diabetic chronic kidney disease (principal); I13.0 Hypertensive heart and chronic kidney disease with heart failure and stage 1 through stage 4 chronic kidney disease, or unspecified chronic kidney disease; N18.9 Chronic kidney disease, unspecified; I50.9 Heart failure, unspecified; E55.9 Vitamin D deficiency, unspecified; I48.91 Unspecified atrial fibrillation; E78.5 Hyperlipidemia, unspecified; I25.2 Old myocardial infarction; Z41.9 Encounter for procedure for purposes other than remedying health state, unspecified; Z79.899 Other long term (current) drug therapy; Z95.1 Presence of aortocoronary bypass graft; Z95.0 Presence of cardiac pacemaker

== ENCOUNTER → 2019-12-11 | Outpatient (CLI) | payer OTHER | END | disposition home or self-care (01) | LOC: LAB 09:48 | PROVIDERS: Internal Medicine | DX: I48.91 Unspecified atrial fibrillation (principal) ==

== ENCOUNTER → 2019-12-12 | Outpatient (CLI) | payer OTHER ==
[2019-12-12 17:18] LABS: CREATININE 1.46 mg/dL (0.70-1.30); POTASSIUM 4.3 mmol/L (3.5-5.1)
== END | disposition home or self-care (01) ==
LOC: LAB 16:26
PROVIDERS: Student in an Organized Health Care Education/Training Program
DX: I25.5 Ischemic cardiomyopathy (principal)

== ENCOUNTER → 2019-12-18 | Outpatient (CLI) | payer OTHER ==
[2019-12-18 09:03] LABS: INTERNATIONAL NORM RATIO 2.9 (2.0-3.5)
== END | disposition home or self-care (01) ==
LOC: LAB 08:28
PROVIDERS: Internal Medicine
DX: I48.91 Unspecified atrial fibrillation (principal)

== ENCOUNTER → 2019-12-30 | Outpatient (CLI) | payer OTHER ==
[~2019-12-30] MED LIST changes: +BAYER ASPIRIN C81 MG PO; +JANUVIA25 MG PO; +LISINOPRIL5 MG PO; +POTASSIUM CHLO10 ME5 PO
--- NOTE | 2019-12-30 12:15 | NUR ---
INFORMED CONSENT SIGNED FOR LEXISCAN STRESS TEST WITH DR. PINZON. RESTING EKG PACED WITH PVC'S (COUPLETS). HR 77, BP 118/60. PULSE OX 99% AND LUNGS CLEAR BILATERALLY. COMPLETED ONE MINUTE OF LEXISCAN PROTOCOL RECEIVING LEXISCAN 0.4MG OVER 10 SECONDS. PVC'S NOTED WITH NO ST CHANGES. PT HAD NO C/O. LAST RECOVERY HR 73, BP 102/60. WAITING NUCLEAR SCANNING IN STABLE CONDITION.
== END | disposition home or self-care (01) ==
LOC: CARD 00:27
PROVIDERS: ATTEND Student in an Organized Health Care Education/Training Program
DX: I08.3 Combined rheumatic disorders of mitral, aortic and tricuspid valves (principal); I25.5 Ischemic cardiomyopathy; R06.02 Shortness of breath

== ENCOUNTER → 2020-01-01 | Outpatient (CLI) | payer OTHER ==
[2020-01-01 09:12] LABS: INTERNATIONAL NORM RATIO 4.5 (2.0-3.5)
== END | disposition home or self-care (01) ==
LOC: LAB 08:25
PROVIDERS: Internal Medicine; ATTEND Psychiatry & Neurology Neurology with Special Qualifications in Child Neurology
DX: I48.91 Unspecified atrial fibrillation (principal)

== ENCOUNTER → 2020-01-07 | Outpatient (CLI) | payer OTHER ==
[2020-01-07 14:19] LABS: BILIRUBIN NEGATIVE; BLOOD NEGATIVE (NEGATIVE); CLARITY CLOUDY (CLEAR); COLOR YELLOW (YELLOW); GLUCOSE NEGATIVE; KETONE NEGATIVE; LEUKO ESTERASE 3+ (NEGATIVE); NITRITE NEGATIVE (NEGATIVE); SPECIFIC GRAVITY 1.015 (1.001-1.030); UROBILINOGEN 0.2 E.U./dl (0.0-1.0); WBC TNTC wbc/hpf (0-5)
[2020-01-07 14:20] LABS: BACTERIA 2+
== END | disposition home or self-care (01) ==
LOC: RESCLI 00:43
PROVIDERS: Internal Medicine; ATTEND Internal Medicine
DX: Z41.9 Encounter for procedure for purposes other than remedying health state, unspecified (principal); E11.9 Type 2 diabetes mellitus without complications; E61.1 Iron deficiency; I48.91 Unspecified atrial fibrillation; E78.5 Hyperlipidemia, unspecified; E55.9 Vitamin D deficiency, unspecified; I13.0 Hypertensive heart and chronic kidney disease with heart failure and stage 1 through stage 4 chronic kidney disease, or unspecified chronic kidney disease; E11.22 Type 2 diabetes mellitus with diabetic chronic kidney disease; I50.9 Heart failure, unspecified; N18.9 Chronic kidney disease, unspecified; R82.71 Bacteriuria; Z79.82 Long term (current) use of aspirin; Z79.899 Other long term (current) drug therapy; Z95.1 Presence of aortocoronary bypass graft; Z95.0 Presence of cardiac pacemaker

== ENCOUNTER → 2020-01-16 | Outpatient (CLI) | payer OTHER ==
[2020-01-16 14:46] LABS: CREATININE 1.67 mg/dL (0.70-1.30); POTASSIUM 4.6 mmol/L (3.5-5.1)
== END | disposition home or self-care (01) ==
LOC: LAB 13:40
PROVIDERS: ATTEND Student in an Organized Health Care Education/Training Program
DX: I50.22 Chronic systolic (congestive) heart failure (principal)

== ENCOUNTER 2020-01-27 19:15 | Inpatient (IN) | payer OTHER ==
[~2020-01-27] VITALS: Ht 167.6 cm; Wt 35.0 kg
[2020-01-27 19:22] VITALS: BP 132/77
--- NOTE | 2020-01-27 19:42 | NUR ---
BLADDER SCANNER SHOWED 13ML
[2020-01-27 20:10] LABS: BILIRUBIN Negative; BLOOD 3+ (Negative); CLARITY Cloudy (Clear); COLOR Yellow (Yellow); GLUCOSE Negative; KETONE Negative; LEUKO ESTERASE 3+ (Negative); NITRITE Negative (Negative); UROBILINOGEN 0.2 E.U./dl (0.0-1.0)
[2020-01-27 20:11] LABS: BACTERIA 2+; WBC 41-50 wbc/hpf (0-5)
[2020-01-27 20:11] LABS: BASO % 0.2 % (0.0-1.0); EOS # 0.2 10*3/uL (0.0-0.4); EOS % 1.4 % (1.0-4.0); HEMATOCRIT 27.5 % (42.0-52.0); LYMPH # 1.4 10*3/uL (1.3-4.4); LYMPH % 11.4 % (27.0-41.0); MEAN CELL VOLUME 100.7 fl (80.0-94.0); MEAN CORPUSCULAR HGB 32.2 pg (27.0-31.0); MEAN PLATELET VOLUME 10.6 fl (9.6-12.3); MONO # 1.2 10*3/uL (0.1-1.0); MONO % 9.5 % (3.0-9.0); NEUT # 9.3 10*3/uL (2.3-7.9); NEUT % 76.7 % (47.0-73.0); PLATELET COUNT AUTOMATED 220 10*3/uL (130-400); RED BLOOD COUNT 2.73 10*6/uL (4.50-5.90); RED CELL DISTRI WIDTH 17.2 % (0-14.5); WHITE BLOOD COUNT 12.1 10*3/uL (4.8-10.8)
[2020-01-27 20:31] LABS: ALKALINE PHOSPHATASE 77 U/L (45-117); BUN 25 mg/dl (7-24); CHLORIDE 103 mmol/L (98-107); CREATININE 1.21 mg/dL (0.70-1.30); POTASSIUM 4.2 mmol/L (3.5-5.1); SGOT/AST 30 IU/L (3-35); SGPT/ALT 30 U/L (12-78); SODIUM 133 mmol/L (136-145); TROPONIN I 0.018 ng/ml (<0.045)
--- NOTE | 2020-01-27 20:31 | NUR ---
GAVE PT. WARM BLANKETS, CHANGED INTO GOWN AND BAGGED CLOTHES.
--- NOTE | 2020-01-27 20:32 | NUR ---
PT. C/O SOB WHEN GETTIN UNDRESSED. TIARA SOLIZ NOTIFIED. EKG DONE.
[2020-01-27 20:53] VITALS: BP 116/68
[2020-01-27 21:40] VITALS: BP 117/68
--- NOTE | 2020-01-27 21:40 | NUR ---
A 84, admitted to 5E, under the services of SHANNAN Burton DO with a diagnosis of UTI, DYSPNEA, ATYPICAL CHEST PAIN. Chief complaint is WEINBERG CATHETER PROBLEM. Patient arrived via stretcher from ER. Monitor applied. Initial assessment completed. Vital signs taken and recorded. SHANNAN BURTON DO notified of admission to the unit. Orders received. See assessment for past medical history, medications and allergies. Patient and/or family oriented to unit. [address] visitation policy reviewed. Clothing/patient valuable form completed. SHERLY BUI
[2020-01-27] MEDS ORDERED: TYLENOL #3 PO (21:50)
[2020-01-27] MEDS ORDERED: CIPROFLOXACIN500 M4 PO (21:51)
--- NOTE | 2020-01-27 21:52 | NUR ---
PICTURES TAKEN ON R BAUTISTA AND LOWER BACK.
[2020-01-27] MEDS ORDERED: DULCOLAX STOOL100 M1 PO (21:53)
[2020-01-27 21:59] LABS: INTERNATIONAL NORM RATIO 1.1 (2.0-3.5)
--- NOTE | 2020-01-27 22:14 | NUR ---
NOTIFIED DR MARTINEZ ANSWERING SERVICE OF CONSULT.
[2020-01-28] VITALS: BP 117/59
--- NOTE | 2020-01-28 04:04 | NUR ---
NOTIFIED DR MCCLELLAN THAT PATIENT HAD A 6 BEAT RUN OF VTACH. PATIENT IS ASYMPTOMATIC.
--- NOTE | 2020-01-28 04:31 | NUR ---
Patient resting quietly with no c/o discomfort. Respirations easy and regular. Vital signs stable. No overt distress. SHERLY BUI
[2020-01-28 06:31] LABS: BASO % 0.1 % (0.0-1.0); EOS # 0.2 10*3/uL (0.0-0.4); EOS % 2.2 % (1.0-4.0); HEMATOCRIT 26.7 % (42.0-52.0); LYMPH # 1.3 10*3/uL (1.3-4.4); LYMPH % 13.7 % (27.0-41.0); MEAN CELL VOLUME 100.4 fl (80.0-94.0); MEAN CORPUSCULAR HGB 32.3 pg (27.0-31.0); MEAN CORPUSCULAR HGB CONC 32.2 g/dl (33.0-37.0); MEAN PLATELET VOLUME 10.7 fl (9.6-12.3); MONO # 1.2 10*3/uL (0.1-1.0); MONO % 11.7 % (3.0-9.0); NEUT % 71.7 % (47.0-73.0); PLATELET COUNT AUTOMATED 193 10*3/uL (130-400); RED BLOOD COUNT 2.66 10*6/uL (4.50-5.90); RED CELL DISTRI WIDTH 16.9 % (0-14.5); WHITE BLOOD COUNT 9.8 10*3/uL (4.8-10.8)
[2020-01-28 06:45] LABS: BUN 20 mg/dl (7-24); CHLORIDE 105 mmol/L (98-107); POTASSIUM 3.5 mmol/L (3.5-5.1); SGPT/ALT 25 U/L (12-78); SODIUM 139 mmol/L (136-145)
[2020-01-28 06:54] LABS: ALBUMIN 2.8 gm/dl (3.1-4.5); ALKALINE PHOSPHATASE 68 U/L (45-117); CREATININE 1.06 mg/dL (0.70-1.30); SGOT/AST 18 IU/L (3-35); TOTAL PROTEIN 5.6 gm/dL (6.4-8.2)
[2020-01-28 07:14] LABS: INTERNATIONAL NORM RATIO 1.2 (2.0-3.5)
[2020-01-28 07:54] LABS: VITAMIN D, 25-HYDROXY 81.1 ng/mL (30-100)
[2020-01-28 08:00] VITALS: BP 102/52
--- NOTE | 2020-01-28 08:11 | NUR ---
Occupational therapy order and nursing screen received. Will follow up with patient for completion of an OT evaluation. Thank you. Rebecca Malloy, OTR/L
--- NOTE | 2020-01-28 08:12 | NUR ---
PT RESTING IN BED. NO DISTRESS NOTED. NO VOICED C/O. WILL MONITOR
--- NOTE | 2020-01-28 08:27 | NUR ---
PHYSICAL THERAPY Nursing screen received and chart reviewed. Physical therapy order received. Will follow to complete PT evaluation. Thank you. Florecita Cook,PT,DPT
--- NOTE | 2020-01-28 11:31 | NUR ---
Occupational Therapy evaluation completed on five with full evaluation to follow. Recommend occupational therapy per plan of care and SNF upon discharge. Thank you for this referral. Rebecca Malloy OTR/L
--- NOTE | 2020-01-28 11:32 | NUR ---
PHYSICAL THERAPY Physical Therapy evaluation completed on 5th floor with full evaluation to follow. Recommend physical therapy per plan of care and home with home health upon discharge. Thank you for this referral. Abel Shelton SPT Florecita Cook PT,DPT
--- NOTE | 2020-01-28 11:58 | NUR ---
Scientific Technical Writer in to talk to patient. Patient states lives at HOME with . There are 12 steps in the home. Physician: [facility]acy: [facility] Home health services: NONE Patient's level of ADLs: INDEPENDENT Patient has working utilities: YES DME: NONE Follow-up physician's appointment after d/c: WILL BE MADE BY HOSPITALIST NURSE DIRECTOR ON DISCHARGE Does patient want to access PORTAL?: NO Discharge plan PT LIVES AT HOME WITH HIS AND IS INDEPENDENT IN HIS CARE. TALKED TO PT ABOUT HOME HEALTH CARE, STATES HE WILL THINK ABOUT IT. WILL CONTINUE TO FOLLOW. PT STATES PLAN IS TO RETURN HOME WHEN MEDICALLY STABLE. PT STATES HE WILL TAKE A TAXI HOME ON DISCHARGE. . PAULETTE MARIN
[2020-01-28 12:00] VITALS: BP 122/50
--- NOTE | 2020-01-28 13:03 | NUR ---
PT MEDICATED WITH TYLENOL FOR C/O BLE PAIN / PT RATES PAIN 5 WILL MONITOR
--- NOTE | 2020-01-28 13:45 | NUR ---
PT STATES THAT TYLENOL HELPED WILL MONITOR
[2020-01-28 16:00] VITALS: BP 130/62
--- NOTE | 2020-01-28 16:55 | NUR ---
PT SITTING UP IN CHAIR. NO DISTRESS NOTED. WILL MONITOR
[2020-01-28 20:00] VITALS: BP 109/63
[2020-01-29] VITALS: BP 107/58
--- NOTE | 2020-01-29 01:18 | NUR ---
PATIENT RESTING IN BED WITH EYES CLOSED. DENIES COMPLAINTS OF PAIN OR DISCOMFORT. RESPIRATIONS REGULAR AND NON-LABORED. WEINBERG CATH PATENT DRAINING GABI URINE. WILL CONTINUE TO MONITOR. CALL LIGHT IN REACH.
[2020-01-29 06:34] LABS: BASO % 0.2 % (0.0-1.0); EOS # 0.2 10*3/uL (0.0-0.4); EOS % 1.7 % (1.0-4.0); HEMATOCRIT 28.9 % (42.0-52.0); LYMPH # 1.3 10*3/uL (1.3-4.4); MEAN CELL VOLUME 98.6 fl (80.0-94.0); MEAN CORPUSCULAR HGB 31.7 pg (27.0-31.0); MEAN CORPUSCULAR HGB CONC 32.2 g/dl (33.0-37.0); MONO # 1.4 10*3/uL (0.1-1.0); MONO % 12.5 % (3.0-9.0); NEUT # 8.4 10*3/uL (2.3-7.9); PLATELET COUNT AUTOMATED 222 10*3/uL (130-400); RED BLOOD COUNT 2.93 10*6/uL (4.50-5.90); RED CELL DISTRI WIDTH 16.9 % (0-14.5); WHITE BLOOD COUNT 11.4 10*3/uL (4.8-10.8)
[2020-01-29 06:53] LABS: BUN 21 mg/dl (7-24); CHLORIDE 101 mmol/L (98-107); CREATININE 1.12 mg/dL (0.70-1.30); POTASSIUM 2.8 mmol/L (3.5-5.1); SODIUM 138 mmol/L (136-145)
[2020-01-29 08:00] VITALS: BP 122/66
--- NOTE | 2020-01-29 08:13 | NUR ---
NOTIFIED REGARDING K LEVEL THIS AM. NEW ORDERS TO BE ENTERED PER PHYSICIAN.
--- NOTE | 2020-01-29 09:55 | NUR ---
PHYSICAL THERAPY Patient seen this am 1;1 for therapy visit and was resting supine in bed upon therapist arrival. Patient identified by name / and presented with continuous IV treatment. Patient also reports no new c/o's, recording resting HR 75 bpm and transfering supine to sit EOB, SBA, then sit to stand, SBA x 1. Patient tolerated 1-2 minutes static stand then completed seated B LE therex, all planes, 2 x 10 reps each to increase LE strength. Patient returned to supine in bed and remained with call light, tray table, telephone and bed alarm for safety. Will continue per POC as tolerated, total treatment time 17 minutes. Patient HR remained WFL's throughout entire treatment. Clifford Abbott, RESEARCH NUTRITIONIST
--- NOTE | 2020-01-29 10:35 | NUR ---
AWARE THAT PATIENT IS UNABLE TO TOLERATE IV K-RUN. PER , OKAY TO STOP IV AND NEW ORDERS WILL BE ENTERED PER PHYSICIAN.
--- NOTE | 2020-01-29 10:36 | NUR ---
IN TO SEE PATIENT.
--- NOTE | 2020-01-29 11:22 | NUR ---
OT NOTE Upon arrival pt was laying supine in bed with head elevated agreeable to 15 minute OT session. Transfer supine to EOB SBA. Pt SBA to [facility] socks. Sit-stand from EOB SBA with w/w for UB support and safety. Functional mobility from bed to bathroom SBA with w/w. Attempted commode transfer however, pt declined stating " I dont want to sit down there". Functional mobility to recliner SBA with w/w. Throughout session pt stated "I do not want you touching me, I can do everything myself". Pt left in recliner with call light in reach. Continue with POC when able. DAVID Tyler/MARIBEL Godwin/Nuno
--- NOTE | 2020-01-29 11:41 | NUR ---
INVENTORY CONTROL SUPERVISOR BACK IN TO TALK WITH PT. PT STATES HE DOES NOT WANT HOME HEALTH. STATES HE WILL RETURN HOME WITH . WILL CONTINUE TO FOLLOW.
[2020-01-29 12:00] VITALS: BP 100/62
[2020-01-29 15:16] LABS: CREATININE 1.55 mg/dL (0.70-1.30)
[2020-01-29 15:21] LABS: POTASSIUM 3.9 mmol/L (3.5-5.1)
[2020-01-29 16:00] VITALS: BP 98/51
[2020-01-29 17:30] VITALS: BP 100/54
[2020-01-29 20:00] VITALS: BP 111/60
--- NOTE | 2020-01-29 20:27 | NUR ---
PT SEEN AND ASSESSED. PT DENIES ANY CURRENT C/O AT THIS TIME.
[2020-01-30] VITALS: BP 99/50
--- NOTE | 2020-01-30 00:54 | NUR ---
24 HR chart check completed.
--- NOTE | 2020-01-30 02:24 | NUR ---
24 HR chart check completed.
[2020-01-30 06:22] LABS: BASO % 0.3 % (0.0-1.0); EOS # 0.2 10*3/uL (0.0-0.4); EOS % 1.3 % (1.0-4.0); HEMATOCRIT 30.7 % (42.0-52.0); LYMPH # 1.2 10*3/uL (1.3-4.4); LYMPH % 10.5 % (27.0-41.0); MEAN CORPUSCULAR HGB 31.3 pg (27.0-31.0); MEAN CORPUSCULAR HGB CONC 30.9 g/dl (33.0-37.0); MEAN PLATELET VOLUME 11.3 fl (9.6-12.3); MONO # 1.5 10*3/uL (0.1-1.0); MONO % 12.9 % (3.0-9.0); NEUT # 8.5 10*3/uL (2.3-7.9); NEUT % 74.4 % (47.0-73.0); PLATELET COUNT AUTOMATED 214 10*3/uL (130-400); RED BLOOD COUNT 3.04 10*6/uL (4.50-5.90); WHITE BLOOD COUNT 11.4 10*3/uL (4.8-10.8)
[2020-01-30 06:50] LABS: BUN 23 mg/dl (7-24); CHLORIDE 104 mmol/L (98-107); CREATININE 1.19 mg/dL (0.70-1.30); POTASSIUM 3.7 mmol/L (3.5-5.1); SODIUM 140 mmol/L (136-145)
[2020-01-30 08:00] VITALS: BP 100/58
--- NOTE | 2020-01-30 08:27 | NUR ---
THERAPY IN TO SEE PATIENT.
--- NOTE | 2020-01-30 08:37 | NUR ---
OT NOTE Upon arrival pt was laying supine in bed agreeable to 20 minute OT session. Identified by name and date of with no complaints. Transfer supine to EOB SBA. Sit-stand from EOB SBA with w/w for UB support and safety. Functional mobility from EOB to bathroom, back to recliner CGA with w/w. Transferring on and off commode SBA with w/w. Balance throughout mobility was good+. While seated in ecliner pt was able to doff/[facility] socks at SBA. Sitting balance was good+. Pt left in recliner with call light in reach. Continue with POC when able. DAVID Tyler/MARIBEL Godwin/Nuno
--- NOTE | 2020-01-30 08:40 | NUR ---
IN TO SEE PATIENT THIS AM AND NOTIFIED REGARDING BP 100/58. OKAY TO HOLD SCHEDULED ZESTRIL THIS AM. WILL CONTINUE TO MONITOR.
--- NOTE | 2020-01-30 09:36 | NUR ---
PHYSICAL THERAPY TREATMENT TIME: OUT 08:40 AM 18 MINUTES PRESENTATION: Patient was supine in bed with head of bed elevated Bed alarm on Identified by name and on wristband Informed consent for treatment No spO2 No IVs COMPLAINTS: No complaints WT. bearing status: No wt. bearing restrictions ASSISTIVE DEVICE: Wh Walker TRANSFERS: Supine <> sitting on EOB : SBA Sitting on EOB: SBA STS <> EOB: SBA STS commode: SBA TREATMENT: GAIT with Wh Walker and CLose Supervision/ SBA for 25' x 1 and then a second gait of 15' x 1. RESPONSE TO TREATMENT: No LOB No SOB Verbal cues required for hand placement and pushing off CONCLUSION: Patient left in sitting position in bed chair Chair alarm attached and tested JESS DOS SANTOS VOCATIONAL DIRECTOR
--- NOTE | 2020-01-30 09:52 | NUR ---
IN TO SEE PATIENT.
--- NOTE | 2020-01-30 10:34 | NUR ---
PATIENT REFUSING TO HAVE NEW DRESSING APPLIED TO LEFT LOWER BACK ABRASION. WILL CONTINUE TO MONITOR.
--- NOTE | 2020-01-30 10:59 | NUR ---
IN TO SEE PATIENT.
[2020-01-30] MEDS ORDERED: TORSEMIDE20 MG PO (11:16)
[2020-01-30] MEDS ORDERED: ALDACTONE25 MG PO (11:16)
[2020-01-30] MEDS ORDERED: KLOR-CON M2020 ME1 PO (11:16)
--- NOTE | 2020-01-30 11:16 | NUR ---
PT CONTINUES TO SAY HE WILL RETURN HOME WITH NO NEW NEEDS ON DISCHARGE. WILL CONTINUE TO FOLLOW.
[2020-01-30 12:00] VITALS: BP 102/64
--- NOTE | 2020-01-30 12:34 | NUR ---
PATIENT REFUSING DISCHARGE PHOTOS.
--- NOTE | 2020-01-30 13:07 | NUR ---
Discharge instructions reviewed with patient/family. Patient receptive and verbalizes understanding. Follow-up care arranged. Written instructions given to patient/family. KEITH PAYTON.
--- NOTE | 2020-01-31 08:08 | NUR ---
PHYSICAL THERAPY CO-SIGN I approve of the Phyical Therapy notes written above. Zulema Jara PT
== END 2020-01-30 13:35 | disposition home or self-care (01) | DRG 291 ==
LOC: ED 19:15 → EDHOLD 20:57 → 5E 21:17
PROVIDERS: Internal Medicine; Nurse Practitioner Family; Student in an Organized Health Care Education/Training Program; ADMIT Family Medicine; ATTEND Family Medicine
DX: I13.0 Hypertensive heart and chronic kidney disease with heart failure and stage 1 through stage 4 chronic kidney disease, or unspecified chronic kidney disease (principal); I50.43 Acute on chronic combined systolic (congestive) and diastolic (congestive) heart failure; E43 Unspecified severe protein-calorie malnutrition; N39.0 Urinary tract infection, site not specified; I48.21 Permanent atrial fibrillation; E87.1 Hypo-osmolality and hyponatremia; I44.2 Atrioventricular block, complete; Z68.1 Body mass index [BMI] 19.9 or less, adult; N18.9 Chronic kidney disease, unspecified; D53.9 Nutritional anemia, unspecified; E11.22 Type 2 diabetes mellitus with diabetic chronic kidney disease; R31.9 Hematuria, unspecified; E11.65 Type 2 diabetes mellitus with hyperglycemia; I25.5 Ischemic cardiomyopathy; I25.10 Atherosclerotic heart disease of native coronary artery without angina pectoris; I07.1 Rheumatic tricuspid insufficiency; E87.6 Hypokalemia; E83.42 Hypomagnesemia; D72.829 Elevated white blood cell count, unspecified; I25.2 Old myocardial infarction; Z95.1 Presence of aortocoronary bypass graft

== ENCOUNTER → 2020-02-04 | Outpatient (CLI) | payer OTHER ==
[~2020-02-04] MED LIST changes: +ALDACTONE25 MG PO; +CIPROFLOXACIN500 M4 PO; +DULCOLAX STOOL100 M1 PO; +KLOR-CON M2020 ME1 PO; +TYLENOL #3 PO
[2020-02-04 11:06] LABS: INTERNATIONAL NORM RATIO 1.1 (2.0-3.5)
== END | disposition home or self-care (01) ==
LOC: LAB 10:32
PROVIDERS: Hospitalist; ATTEND Internal Medicine
DX: I48.91 Unspecified atrial fibrillation (principal); I50.9 Heart failure, unspecified

== ENCOUNTER → 2020-02-12 | Outpatient (CLI) | payer OTHER | END | disposition home or self-care (01) | LOC: RESCLI 00:31 | PROVIDERS: ATTEND Family Medicine | DX: E61.1 Iron deficiency (principal); E55.9 Vitamin D deficiency, unspecified; I48.91 Unspecified atrial fibrillation; E78.5 Hyperlipidemia, unspecified; E11.9 Type 2 diabetes mellitus without complications; I11.0 Hypertensive heart disease with heart failure; I50.9 Heart failure, unspecified; Z41.9 Encounter for procedure for purposes other than remedying health state, unspecified; R82.71 Bacteriuria; R19.7 Diarrhea, unspecified; H44.5 Degenerated conditions of globe; Z90.79 Acquired absence of other genital organ(s); Z79.899 Other long term (current) drug therapy; Z95.1 Presence of aortocoronary bypass graft; Z95.0 Presence of cardiac pacemaker ==

== ENCOUNTER → 2020-03-17 | Outpatient (CLI) | payer OTHER | END | disposition home or self-care (01) | LOC: RESCLI 00:33 | PROVIDERS: ATTEND Internal Medicine | DX: E61.1 Iron deficiency (principal); E55.9 Vitamin D deficiency, unspecified; I48.91 Unspecified atrial fibrillation; E78.5 Hyperlipidemia, unspecified; I11.0 Hypertensive heart disease with heart failure; I50.9 Heart failure, unspecified; H44.5 Degenerated conditions of globe; E11.9 Type 2 diabetes mellitus without complications; R53.1 Weakness; Z79.899 Other long term (current) drug therapy; Z95.1 Presence of aortocoronary bypass graft; Z95.0 Presence of cardiac pacemaker ==

== ENCOUNTER → 2020-04-08 | Outpatient (CLI) | payer OTHER ==
[2020-04-08 15:04] LABS: BASO # 0.1 10*3/uL (0.0-0.1); BASO % 0.6 % (0.0-1.0); EOS # 0.2 10*3/uL (0.0-0.4); EOS % 2.3 % (1.0-4.0); LYMPH # 1.6 10*3/uL (1.3-4.4); LYMPH % 17.7 % (27.0-41.0); MEAN CELL VOLUME 103.4 fl (80.0-94.0); MEAN CORPUSCULAR HGB 32.7 pg (27.0-31.0); MEAN CORPUSCULAR HGB CONC 31.6 g/dl (33.0-37.0); MEAN PLATELET VOLUME 11.7 fl (9.6-12.3); MONO # 1.1 10*3/uL (0.1-1.0); MONO % 11.7 % (3.0-9.0); NEUT # 6.1 10*3/uL (2.3-7.9); NEUT % 67.5 % (47.0-73.0); PLATELET COUNT AUTOMATED 201 10*3/uL (130-400); RED BLOOD COUNT 3.58 10*6/uL (4.50-5.90); RED CELL DISTRI WIDTH 13.8 % (0-14.5)
[2020-04-08 15:27] LABS: ALBUMIN 3.7 gm/dl (3.1-4.5); ALKALINE PHOSPHATASE 127 U/L (45-117); BUN 36 mg/dl (7-24); CHLORIDE 99 mmol/L (98-107); CREATININE 1.23 mg/dL (0.70-1.30); POTASSIUM 5.4 mmol/L (3.5-5.1); SGOT/AST 24 IU/L (3-35); SGPT/ALT 26 U/L (12-78); SODIUM 132 mmol/L (136-145); TOTAL PROTEIN 7.6 gm/dL (6.4-8.2)
[2020-04-08 15:47] LABS: BILIRUBIN Negative (Negative); BLOOD Negative (Negative); CLARITY Clear (Clear); COLOR Yellow (Yellow); GLUCOSE Negative (Negative); KETONE Negative (Negative); LEUKO ESTERASE 1+ (Negative); NITRITE Negative (Negative); PH 5.5 (4.5-8.0); UROBILINOGEN 0.2 E.U./dl (0.0-1.0)
[2020-04-08 17:29] LABS: BACTERIA 1+
== END | disposition home or self-care (01) ==
LOC: US 14:25
PROVIDERS: ATTEND Urology
DX: D50.0 Iron deficiency anemia secondary to blood loss (chronic) (principal); I10 Essential (primary) hypertension; R53.83 Other fatigue; N28.89 Other specified disorders of kidney and ureter

== ENCOUNTER 2020-04-27 10:25 | Inpatient (IN) | payer OTHER ==
[~2020-04-27] VITALS: Ht 165.1 cm; Wt 57.4 kg
[2020-04-27 11:25] VITALS: BP 97/56
[2020-04-27 11:52] LABS: BASO # 0.1 10*3/uL (0.0-0.1); BASO % 0.6 % (0.0-1.0); EOS # 0.3 10*3/uL (0.0-0.4); EOS % 3.1 % (1.0-4.0); HEMATOCRIT 34.7 % (42.0-52.0); LYMPH # 1.4 10*3/uL (1.3-4.4); LYMPH % 17.6 % (27.0-41.0); MEAN CELL VOLUME 102.7 fl (80.0-94.0); MEAN CORPUSCULAR HGB 33.1 pg (27.0-31.0); MEAN CORPUSCULAR HGB CONC 32.3 g/dl (33.0-37.0); MEAN PLATELET VOLUME 11.1 fl (9.6-12.3); MONO % 12.4 % (3.0-9.0); NEUT # 5.4 10*3/uL (2.3-7.9); NEUT % 66.2 % (47.0-73.0); PLATELET COUNT AUTOMATED 160 10*3/uL (130-400); RED BLOOD COUNT 3.38 10*6/uL (4.50-5.90); RED CELL DISTRI WIDTH 13.5 % (0-14.5); WHITE BLOOD COUNT 8.1 10*3/uL (4.8-10.8)
[2020-04-27 12:03] LABS: ACT PARTIAL THROMBO TIME 33.3 SECONDS (20.0-32.1); INTERNATIONAL NORM RATIO 1.3 (2.0-3.5)
[2020-04-27 12:07] LABS: ALBUMIN 3.3 gm/dl (3.1-4.5); ALKALINE PHOSPHATASE 94 U/L (45-117); BUN 36 mg/dl (7-24); CHLORIDE 104 mmol/L (98-107); CREATININE 1.47 mg/dL (0.70-1.30); LIPASE 321 U/L (73-393); POTASSIUM 4.7 mmol/L (3.5-5.1); SGOT/AST 15 IU/L (3-35); SGPT/ALT 23 U/L (12-78); SODIUM 136 mmol/L (136-145); TOTAL PROTEIN 6.9 gm/dL (6.4-8.2); TROPONIN I < 0.015 ng/ml (<0.045)
[2020-04-27 14:28] LABS: BILIRUBIN Negative (Negative); BLOOD Negative (Negative); CLARITY Clear (Clear); COLOR Yellow (Yellow); GLUCOSE Negative (Negative); KETONE Negative (Negative); LEUKO ESTERASE Negative (Negative); NITRITE Negative (Negative); SPECIFIC GRAVITY 1.015 (1.001-1.030); UROBILINOGEN 0.2 E.U./dl (0.0-1.0)
[2020-04-27 14:49] LABS: BACTERIA TRACE; EPITHELIAL CELLS 0-2; RBC 0-2 rbc/hpf (0-2); WBC 0-2 wbc/hpf (0-5)
[2020-04-27 18:30] VITALS: BP 138/76
[2020-04-27 20:00] VITALS: BP 132/50
[2020-04-28] VITALS: BP 100/50
[2020-04-28 07:47] LABS: BASO % 0.6 % (0.0-1.0); EOS # 0.3 10*3/uL (0.0-0.4); EOS % 3.6 % (1.0-4.0); HEMATOCRIT 34.1 % (42.0-52.0); LYMPH # 1.5 10*3/uL (1.3-4.4); LYMPH % 20.9 % (27.0-41.0); MEAN CELL VOLUME 101.5 fl (80.0-94.0); MEAN CORPUSCULAR HGB 32.4 pg (27.0-31.0); MEAN PLATELET VOLUME 11.2 fl (9.6-12.3); MONO # 0.7 10*3/uL (0.1-1.0); MONO % 10.1 % (3.0-9.0); NEUT # 4.5 10*3/uL (2.3-7.9); NEUT % 64.5 % (47.0-73.0); PLATELET COUNT AUTOMATED 164 10*3/uL (130-400); RED BLOOD COUNT 3.36 10*6/uL (4.50-5.90); RED CELL DISTRI WIDTH 13.3 % (0-14.5)
[2020-04-28 08:00] VITALS: BP 110/71
[2020-04-28 08:19] LABS: BUN 29 mg/dl (7-24); CHLORIDE 107 mmol/L (98-107); CHOLESTEROL 133 mg/dL (<200); CREATININE 1.26 mg/dL (0.70-1.30); HDL CHOLESTEROL 47 mg/dl (40-60); LDL CHOLESTEROL 67 mg/dL (9-159); POTASSIUM 4.4 mmol/L (3.5-5.1); SODIUM 140 mmol/L (136-145); TRIGLYCERIDES 93 mg/dl (<150); VLDL CHOLESTEROL 19 mg/dL (6-40)
[2020-04-28 10:40] VITALS: BP 132/60
[2020-04-28 12:00] VITALS: BP 108/50
[2020-04-28 16:00] VITALS: BP 101/55
[2020-04-28 20:00] VITALS: BP 117/65
[2020-04-29] VITALS: BP 104/62
[2020-04-29 08:00] VITALS: BP 110/61
[2020-04-29] MEDS ORDERED: TORSEMIDE20 MG PO (10:55)
[2020-04-29 12:00] VITALS: BP 121/76
[2020-04-29 16:00] VITALS: BP 120/86
== END 2020-04-29 17:38 | disposition home health service (06) | DRG 640 ==
LOC: ED 10:25 → 5E 15:59 → EDHOLD 15:59 → 5E 17:33
PROVIDERS: Emergency Medicine; Student in an Organized Health Care Education/Training Program; ADMIT Internal Medicine; ATTEND Internal Medicine
DX: E86.0 Dehydration (principal); N17.0 Acute kidney failure with tubular necrosis; E44.0 Moderate protein-calorie malnutrition; I50.22 Chronic systolic (congestive) heart failure; I13.0 Hypertensive heart and chronic kidney disease with heart failure and stage 1 through stage 4 chronic kidney disease, or unspecified chronic kidney disease; I48.91 Unspecified atrial fibrillation; F03.90 Unspecified dementia, unspecified severity, without behavioral disturbance, psychotic disturbance, mood disturbance, and anxiety; E11.65 Type 2 diabetes mellitus with hyperglycemia; Z20.828 Contact with and (suspected) exposure to other viral communicable diseases; E55.9 Vitamin D deficiency, unspecified; N18.31 Chronic kidney disease, stage 3a; I95.9 Hypotension, unspecified; E11.22 Type 2 diabetes mellitus with diabetic chronic kidney disease; Z95.810 Presence of automatic (implantable) cardiac defibrillator; Z95.1 Presence of aortocoronary bypass graft; I25.2 Old myocardial infarction; Z79.899 Other long term (current) drug therapy; Z68.21 Body mass index [BMI] 21.0-21.9, adult

== ENCOUNTER → 2020-05-25 | Outpatient (CLI) | payer OTHER | END | disposition home or self-care (01) | LOC: RESCLI 00:36 | PROVIDERS: ATTEND Internal Medicine Nephrology | DX: I13.0 Hypertensive heart and chronic kidney disease with heart failure and stage 1 through stage 4 chronic kidney disease, or unspecified chronic kidney disease (principal); E61.1 Iron deficiency; E55.9 Vitamin D deficiency, unspecified; I48.91 Unspecified atrial fibrillation; E78.5 Hyperlipidemia, unspecified; H44.5 Degenerated conditions of globe; E11.9 Type 2 diabetes mellitus without complications; I50.9 Heart failure, unspecified; N18.9 Chronic kidney disease, unspecified; Z98.61 Coronary angioplasty status; Z79.01 Long term (current) use of anticoagulants; Z79.899 Other long term (current) drug therapy ==